=== PATIENT | male | born 1990 | race Caucasian/White ===

== ENCOUNTER 2019-01-15 23:30 | Emergency (ER) | payer BC ==
[~2019-01-15] VITALS: Ht 175.3 cm; Wt 83.9 kg
[2019-01-15 23:56] VITALS: Ht 175.3 cm; Wt 83.9 kg
[2019-01-16 02:01] VITALS: BP 147/78
== END 2019-01-16 02:01 | disposition home or self-care (01) ==
LOC: ED 23:30
DX: S92.101A Unspecified fracture of right talus, initial encounter for closed fracture (principal); Z46.89 Encounter for fitting and adjustment of other specified devices; V29.9XXA Motorcycle rider (driver) (passenger) injured in unspecified traffic accident, initial encounter; Y93.I9 Activity, other involving external motion; Y92.413 State road as the place of occurrence of the external cause; Y99.8 Other external cause status